=== PATIENT | male | born 1980 ===

== ENCOUNTER 2018-03-21 13:38 | Emergency (ER) | payer OTHER ==
[2018-03-21 13:49] VITALS: BP 155/95; PULSE 73; RESP 16; TEMP 97; O2SAT 100
--- NOTE | 2018-03-21 14:10 | ED PDOC ---
HPI: Male Pain Time Seen by Provider: 03/21/18 13:51 Chief Complaint (Nursing): Male Genitourinary Chief Complaint (Provider): Penile Pain and Itching History Per: Patient History/Exam Limitations: no limitations Onset/Duration Of Symptoms: Days (5-6) Current Symptoms Are (Timing): Still Present Associated Symptoms: denies: Fever, Diarrhea, Back Pain, Urinary Symptoms Alleviating Factors: None Additional Complaint(s): 38 year old male presenting with 5-6 days of penile redness and itching. Patient states he has had no new sexual partners and is currently on sexually active with 1 female partner and his last sexual encounter was 15 days ago.Denies pain/burning on urination, discharge, blood in urine, back pain, vomiting, testicular pain. PMD: None Past Medical History Reviewed: Historical Data, Nursing Documentation, Vital Signs Vital Signs: Last Vital Signs Temp 97.0 F L 03/21/18 13:46 Pulse 73 03/21/18 13:46 Resp 16 03/21/18 13:46 BP 155/95 H 03/21/18 13:46 Pulse Ox 100 03/21/18 13:46 - Medical History PMH: No Chronic Diseases - Surgical History Surgical History: No Surg Hx - Family History Family History: States: Unknown Family Hx - Living Arrangements Living Arrangements: With Family - Social History Current smoker - smoking cessation education provided: No Alcohol: Social Drugs: Denies - Home Medications Home Medications: Ambulatory Orders Medication Instructions Recorded Clotrimazole [Itch Relief] 1 applic TOP BID #1 tube 03/21/18 - Allergies Allergies/Adverse Reactions: Allergies Allergy/AdvReac Type Severity Reaction Status Date / Time No Known Allergies Allergy Verified 03/21/18 13:46 Review of Systems Genitourinary Male: Positive for: Penile Pain. Negative for: Dysuria, Penile Discharge, Rash Physical Exam - Reviewed Nursing Documentation Reviewed: Yes Vital Signs Reviewed: Yes - Physical Exam Appears: Positive for: Non-toxic, No Acute Distress Skin: Positive for: Normal Color, Warm, Dry. Negative for: Rash Gastrointestinal/Abdominal: Positive for: Normal Exam, Bowel Sounds, Soft. Negative for: Tenderness, Mass, Guarding, Rebound Male Genital Exam: Positive for: normal genitalia (normal uncircumcized male; Foreskin easily retracted; no phimosis or paraphimosis.), other (There are erythematous macules to penile shaft with no tenderness no vesicles or ulcerations; No penile discharge or swelling or erythema to foreskin. ). Negative for: bleeding, erythema, lesions, testicular tenderness (R), testicular tenderness (L) Neurologic/Psych: Positive for: Alert, Oriented, Gait - ECG O2 Sat by Pulse Oximetry: 100 (RA) Pulse Ox Interpretation: Normal Medical Decision Making Medical Decision Makin Initial Impression Fungal Skin Rash Initial plan: * Reevaluation * Urine Dipstick * Accucheck 1423 Fingerstick: 83 Udip: (-) with the exception of trace blood. U/A, U/C ordered. 1500 U/A reviewed and grossly unremarkable. On exam, patient remains AAOx3, in no acute distress. On exam, neck is supple, lungs CTA, cardiac RRR, abdomen is soft and non-tender, neuro exam shows no focal findings. Diagnostic results d/w the patient in great detail. Dx of fungal skin rash d/w the patient. Based on history, exam and diagnostic results plan will be for discharge and outpatient follow up. Advised to follow up with primary care physician in 1-2 days without fail. Advised to take medication as prescribed. Return to the emergency room at any time for any new or worsening symptoms. Patient states he fully agrees with and understands discharge instructions. States that he agrees with the plan and disposition. Verbalized and repeated discharge instructions and plan. I have given the patient opportunity to ask any additional questions. Documented by Clarissa Burgess acting as a scribe for Antonia Siddiqui PA-C. All medical record entries made by the Scribe were at my direction and personally dictated by me. I have reviewed the chart and agree that the record accurately reflects my personal performance of the history, physical exam, medical decision making, and the department course for this patient. I have also personally directed, reviewed, and agree with the discharge instructions and disposition. Disposition - Clinical Impression Clinical Impression: Rash, Penile irritation, Fungal infection of skin, Tinea cruris - Patient ED Disposition Is Patient to be Admitted: No Counseled Patient/Family Regarding: Studies Performed, Diagnosis, Need For Followup, Rx Given - Disposition Referrals: [facility] [Outside] Disposition: Routine/Home Disposition Time: 15:05 Condition: STABLE Additional Instructions: FOLLOW UP WITH CLINIC IN 1-2 DAYS WITHOUT FAIL. RETURN TO ED WITH NAY NEW OR WORSENING SYMPTOMS. Prescriptions: Clotrimazole [Itch Relief] 1 applic TOP BID #1 tube Instructions: Skin Rash, Jock Itch Forms: [employer] (Ukrainian) Print Language: WOLOF - POA Present On Arrival: None Results - Lab Results Lab Results: 03/21/18 03/21/18 14:34 14:21 POC Glucose (mg/dL) 83 Urine Color Yellow Urine Clarity Clear Urine pH 6.0 Ur Specific [place] 1.016 Urine Protein Negative Urine Glucose (UA) Neg Urine Ketones Negative Urine Blood Negative Urine Nitrate Negative Urine Bilirubin Negative Urine Urobilinogen 0.2-1.0 Ur Leukocyte Esterase Neg Urine RBC (Auto) 2 Urine Microscopic WBC < 1
[2018-03-21 14:44] LABS: URINE BILIRUBIN NEGATIVE (NEGATIVE); URINE BLOOD NEGATIVE (NEGATIVE); URINE CLARITY CLEAR (Clear); URINE COLOR YELLOW (YELLOW); URINE GLUCOSE (UA) NEG (Normal); URINE LEUKOCYTE ESTERASE NEG Leu/uL (Negative); URINE PROTEIN NEGATIVE (NEGATIVE); URINE UROBILINOGEN 0.2-1.0 mg/dL (0.2-1.0)
== END 2018-03-21 15:14 | disposition home or self-care (01) ==
LOC: H.ER 13:38
DX: B35.6 Tinea cruris (principal)